=== PATIENT | male | born 1990 | race Caucasian/White ===

== ENCOUNTER 2016-12-16 10:43 | Emergency (ER) | payer MEDICAID ==
[~2016-12-16] VITALS: Ht 188 cm; Wt 90.0 kg
[2016-12-16] MEDS ORDERED: QUET25TA PO (10:48)
[2016-12-16] MEDS ORDERED: ALBU8.5H IH (10:48)
[2016-12-16 13:51] VITALS: BP 125/79
== END 2016-12-16 14:03 | disposition home or self-care (01) ==
LOC: EMS 10:45
DX: Z76.0 Encounter for issue of repeat prescription (principal); F20.9 Schizophrenia, unspecified; J45.909 Unspecified asthma, uncomplicated; F17.210 Nicotine dependence, cigarettes, uncomplicated; Z71.6 Tobacco abuse counseling
CPT/HCPCS: 99283; 99406